=== PATIENT | male | born 1985 | race Caucasian/White ===

== ENCOUNTER 2016-07-07 03:32 | Emergency (ER) | payer SELFPAY ==
[~2016-07-07] VITALS: Ht 180.3 cm; Wt 79.4 kg
--- NOTE | 2016-07-07 03:32 | NUR ---
BIB [facility] TO ER BED 6
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
[2016-07-07 03:36] VITALS: BP 123/76
--- NOTE | 2016-07-07 04:22 | NUR ---
PT BACK FROM XRAY WITH [facility] AT BEDSIDE. PT CONT TO BE AAOX4, VSS, RESP E/U. PAIN 04/19.
[2016-07-07 04:50] VITALS: BP 133/66
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
== END 2016-07-07 04:50 ==
LOC: MED 03:33
DX: S60.051A Contusion of right little finger without damage to nail, initial encounter (principal); V89.2XXA Person injured in unspecified motor-vehicle accident, traffic, initial encounter; Y93.89 Activity, other specified; Y92.89 Other specified places as the place of occurrence of the external cause; Y99.8 Other external cause status
CPT/HCPCS: 73130; 99284